=== PATIENT | male | born 1945 | race Caucasian/White ===

== ENCOUNTER 2019-10-26 03:02 | Emergency (ER) | payer MEDICARE, OTHER ==
[~2019-10-26] VITALS: Ht 167.6 cm; Wt 78.0 kg
[2019-10-26 03:02] VITALS: BP 120/77
--- NOTE | 2019-10-26 03:48 | NUR ---
RADIOLOGY AT BEDSIDE FOR CXR
== END 2019-10-26 05:52 | disposition home or self-care (01) ==
LOC: ER 03:05
DX: J11.1 Influenza due to unidentified influenza virus with other respiratory manifestations (principal); G20 Parkinson's disease; I10 Essential (primary) hypertension; E11.9 Type 2 diabetes mellitus without complications; Z98.890 Other specified postprocedural states; Z85.118 Personal history of other malignant neoplasm of bronchus and lung; Z88.2 Allergy status to sulfonamides; Z88.8 Allergy status to other drugs, medicaments and biological substances
CPT/HCPCS: 71045-TC

== ENCOUNTER 2021-07-20 23:10 | Emergency (ER) | payer OTHER ==
[~2021-07-20] VITALS: Ht 170.2 cm; Wt 74.8 kg
--- NOTE | 2021-07-20 23:30 | NUR ---
[id number] C/O "FEELS LIKE MY PILL IS STUCK IN MY THROAT STILL".PT BREATHING EVEN AND UNLABORED NO SOB OR COUGHING NOTED SATTING 97% RA. PLACED ON THE MONITOR ALL VITALS STABLE. MD WAS AT BEDSIDE FOR EVAL.
--- NOTE | 2021-07-20 23:39 | NUR ---
PATIENT GOING TO CT
--- NOTE | 2021-07-21 01:57 | NUR ---
ATTEMPTED TO CALL CAREGIVER. NO RESPONSE. WILL ATEMPT AGAIN.
--- NOTE | 2021-07-21 03:06 | NUR ---
ATTEMPTED TO CALL CAREGIVER. NO RESPONSE.
--- NOTE | 2021-07-21 04:01 | NUR ---
ATTEMPTED TO CALL CAREGIVER. NO RESPONSE.
--- NOTE | 2021-07-21 04:39 | NUR ---
PT SLEEPING COMFORTABLY BREATHING EVEN AND UNLABORED. ALL VITALS STABLE.
--- NOTE | 2021-07-21 06:02 | NUR ---
ATTEMPTED TO CALL CAREGIVER. NO RESPONSE. WILL ATEMPT AGAIN.
--- NOTE | 2021-07-21 06:18 | NUR ---
CALLED [facility] FOR CAREGIVER/FAMILY PHONE NUMBERS. NO NUMBERS ON FILE. ATTEMPTED TO CALL CAREGIVER, NO RESPONSE.
--- NOTE | 2021-07-21 08:05 | NUR ---
ATTEMPTED TO CALL CAREGIVER. NO RESPONSE.
--- NOTE | 2021-07-21 08:10 | NUR ---
PER [facility] THERE IS NO CONTACT INFOR FOR CAREGIVER/FAMILY
--- NOTE | 2021-07-21 08:40 | NUR ---
CAREGIVER WAS CONTACTED. NO RESPONSE.
--- NOTE | 2021-07-21 08:58 | NUR ---
ATTEMPTED TO CONTACT THE CAREGIVER AT . PT STATED HIS CAREGIVER WAS AT HIS HOME AND TO CALL HIS HOME NUMBER. NO RESPONSE WHEN CALLED.
--- NOTE | 2021-07-21 09:45 | NUR ---
SPOKE WITH AXEL FROM [facility] AND SHE WILL TRY TO REACH THE PATIENT`S APT SERVICE INSPECTOR AND THE CAREGIVER TO STAFF TECHNOLOGIST THE PATIENT. WILL CONTINUE TO FOLLOW UP. AXEL
--- NOTE | 2021-07-21 11:58 | NUR ---
[facility] [phone]
--- NOTE | 2021-07-21 12:01 | NUR ---
NOT IN SERVICE
--- NOTE | 2021-07-21 12:11 | NUR ---
SPOKE WITH LE FROM [facility]. THEY WILL CALL US BACK ONCE BARBERING TEACHER IS REACHED AND [facility] IS OUT OF APARTMENT
--- NOTE | 2021-07-21 12:21 | NUR ---
SPOKE WITH APT EQUITY STRUCTURER ANUSHKA ([phone]) WHO SAID HE WILL OPEN THE APT DOOR FOR THE PATIENT ONCE THE PATIENT IS IN THE BLD. PER PATIENT HE DOES STAY BY HIMSELT AND HIS CAREGIVERS VISIT HIM ONLY FEW HOURS A DAY.
--- NOTE | 2021-07-21 13:45 | NUR ---
STEPHANIE [phone]
[2021-07-21 14:45] VITALS: BP 119/69
== END 2021-07-21 14:45 | disposition home or self-care (01) ==
LOC: ER 23:21
DX: R09.89 Other specified symptoms and signs involving the circulatory and respiratory systems (principal); Z71.1 Person with feared health complaint in whom no diagnosis is made; I10 Essential (primary) hypertension; E11.9 Type 2 diabetes mellitus without complications; M19.90 Unspecified osteoarthritis, unspecified site; G20 Parkinson's disease; Z98.890 Other specified postprocedural states; Z88.2 Allergy status to sulfonamides; Z88.1 Allergy status to other antibiotic agents; Z60.2 Problems related to living alone
CPT/HCPCS: 70490-TC